=== PATIENT | female | born 1990 | race Hispanic/Latino ===

== ENCOUNTER 2017-11-26 21:58 | Emergency (ER) | payer OTHER ==
[2017-11-26 22:28] VITALS: BP 120/77; PULSE 85; RESP 16; TEMP 97.9; O2SAT 98
--- NOTE | 2017-11-26 22:50 | ED PDOC ---
HPI: General Adult Time Seen by Provider: 11/26/17 22:37 Chief Complaint (Nursing): Breast Problem History Per: Patient History/Exam Limitations: no limitations Onset/Duration Of Symptoms: Hrs Additional Complaint(s): Hx of breast cysts presenting with L lateral breast pain, started <1 hour prior to arrival, patient states she was taking a shower and turned, states she may have over-turned or the water pressure was beating down too hard on her chest and caused her severe pain of the breast, states the pain was so severe she turned pale and collapsed on her bed. Patient concerned she may have "ruptured " a cyst in her breast. No fevers, chills, sweats, weight loss. PMD: none Past Medical History Reviewed: Historical Data, Nursing Documentation, Vital Signs Vital Signs: Last Vital Signs Temp 97.9 F 11/26/17 22:25 Pulse 85 11/26/17 22:25 Resp 16 11/26/17 22:25 BP 120/77 11/26/17 22:25 Pulse Ox 98 11/26/17 22:51 - Medical History PMH: No Chronic Diseases - Family History Family History: States: Unknown Family Hx - Allergies Allergies/Adverse Reactions: Allergies Allergy/AdvReac Type Severity Reaction Status Date / Time amoxicillin Allergy RASH Verified 11/26/17 22:30 Review of Systems ROS Statement: Except As Marked, All Systems Reviewed And Found Negative Physical Exam - Reviewed Nursing Documentation Reviewed: Yes Vital Signs Reviewed: Yes - Physical Exam Appears: Positive for: Well, Non-toxic, No Acute Distress Head Exam: Positive for: ATRAUMATIC, NORMAL INSPECTION, NORMOCEPHALIC Skin: Positive for: Normal Color, Warm, DRY Eye Exam: Positive for: EOMI, Normal appearance, PERRL ENT: Positive for: Normal ENT Inspection Neck: Positive for: Normal, Painless ROM Cardiovascular/Chest: Positive for: Regular Rate, Rhythm, Other (L lateral breast with smooth contoured cyst, 4x4cm, tender to palpation, no erythema/skin changes, 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 Negative for: Chest Non Tender Respiratory: Positive for: Normal Breath Sounds Gastrointestinal/Abdominal: Positive for: Normal Exam, Soft Back: Positive for: Normal Inspection Extremity: Positive for: Normal ROM Neurologic/Psych: Positive for: Alert, Oriented - ECG O2 Sat by Pulse Oximetry: 98 Pulse Ox Interpretation: Normal Medical Decision Making Medical Decision MakinPM A/P: Hx of breast cysts presenting with breast pain after shower/turning movement -unlikely ruptured cyst given exam -likely MSK strain -will provide NSAID -patient requesting ultrasound, will get sono to r/o edema or significant abnormality 1215AM EXAM: US Left Breast, Complete CLINICAL HISTORY: 26 years old, female; Pain; Breast pain; Left; Additional info: R/O ruptured cyst to l lateral breast TECHNIQUE: Complete real time ultrasound of all four quadrants of the left breast and the retroareolar region, including ultrasound of the axilla when performed. COMPARISON: No relevant prior studies available. FINDINGS: Soft tissues: Dense parenchyma. No mass or fluid collection. Axillary adenopathy: None. IMPRESSION: 1. No acute findings. Patient feeling better, results given, advised her to followup with a PMD, return precautions discussed. Disposition - Clinical Impression Clinical Impression: Contusion, breast - Disposition Referrals: [facility] [Outside] [facility] [Outside] Disposition: Routine/Home Disposition Time: 00:17 Condition: STABLE Instructions: Contusion (DC) Forms: SqueezeCMM (Armenian)
--- NOTE | 2017-11-29 12:04 | US ---
HISTORY: Apparent palpable abnormality left upper outer quadrant. COMPARISON: None. TECHNIQUE: BREAST LIMITED LT FINDINGS: LEFT BREAST: No solid or cystic masses identified. Retroareolar space appears unremarkable and the area of interest at the left upper outer quadrant however is unremarkable fibroglandular parenchyma with no suspicious color Doppler blood flow pattern. There is no axillary lymphadenopathy. IMPRESSION: No sonographic evidence of malignancy. Continued clinical follow-up is advised for clinically palpable abnormality. BIRAD: BIRADS 1 Negative Recommendation: Continue annual screening mammography, as per ACR guidelines. Concordant preliminary report from [facility], 11/27/2017.
== END 2017-11-27 00:34 | disposition home or self-care (01) ==
LOC: H.ER 21:58
DX: S20.02XA Contusion of left breast, initial encounter (principal); Y92.89 Other specified places as the place of occurrence of the external cause; N60.02 Solitary cyst of left breast
CPT/HCPCS: 76642; 96372; 99285; J1885